=== PATIENT | female | born 1980 | race Caucasian/White ===

== ENCOUNTER 2020-12-28 13:21 | Observation (INO) | payer OTHER ==
[~2020-12-28] VITALS: Ht 167.6 cm; Wt 65.9 kg
--- NOTE | ~2020-12-28 | CN ---
PATIENT NAME:ALMA MARSH MEDICAL RECORD: [id number] : 84 LOCATION:D. D.2121 ADMIT DATE: 12/28/20 ACCOUNT: [id number] CONSULTING PHYSICIAN: KALEB GAINES MD REFERRING PHYSICIAN: MONISHA CRATY MD DATE OF CONSULTATION: 12/29/2020 HISTORY: The patient is a 40-year-old female with no active medical problem except history of paroxysmal supraventricular tachycardia. The patient presented to the Emergency Room with complaints of palpitation symptoms noted to be in PSVT. The patient received adenosine and beta-xin therapy. The patient's PSVT resolved and the patient's repeat EKG showed normal sinus rhythm. I asked to evaluate from a cardiovascular standpoint. PAST MEDICAL HISTORY: Significant for; PSVT -- currently in sinus rhythm. PHYSICAL EXAMINATION: GENERAL: Pleasant young white female, sitting, in no apparent distress. VITAL SIGNS: Blood pressure 110s over 50s, pulse 70s (regular). HEENT: Sclerae are clear; conjunctivae pink. NECK: Supple; no appreciated JVD. HEART: Regular rhythm and rate. LUNGS: Clear. ABDOMEN: Benign. EXTREMITIES: Negative for edema. NEUROLOGIC: Nonfocal. LABORATORY DATA: Hemoglobin and hematocrit 11.8 and 35.9, white blood cell count 8.8, platelet count 223. Sodium 138, potassium 4.0, BUN 13, creatinine is 1. D-dimer negative. Troponin 0.017 (negative). MEDICATIONS: No active medications. ASSESSMENT: Paroxysmal supraventricular tachycardia -- sinus rhythm. PLAN: Recommend starting Cardizem-CD 120 daily. The patient also instructed on decreased caffeine, chocolate usage. The patient is scheduled to follow up with local physicist [facility] in [place]. The patient also will be scheduled for echocardiogram to assess LV function and valvular status. Otherwise, no further cardiac workup indicated at this time. Thank you for allowing me to participate in the care of this patient. TRANSINT:[id number] Voice Confirmation ID: [id number] DOCUMENT ID: [id number] KALEB GAINES MD CC: [id number] DICTATION DATE: 12/29/20 1101 SILVER PLATER: 12/29/20 1446 DIS IN 12/29/20 [id number] [place] [address]
--- NOTE | 2020-12-28 13:38 | NUR ---
PT HEART RATE 237 ON ARRIVAL. MOVED TO TRIAGE ROOM AND CHEMICAL CARDIOVERSION PERFORMED BY DR MAR WITH 12MG ADENOSINE. SUCCESSFUL. RHYTHM STRIPS PLACED ON CHART. MONITORING ON REGISTERED ASSOCIATE.
[2020-12-28 13:51] VITALS: BP 118/51
[2020-12-28 14:05] VITALS: BP 113/74
[2020-12-28 14:14] LABS: BASOPHILS 0.2 % (0-2); EOSINOPHILS 0.9 % (0-7); HEMOGLOBIN 12.9 g/dL (12-16); IMMATURE GRANULOCYTES 0.2 % (0-5); LYMPHOCYTE ABS# 1.58 10x3/uL (1.18-3.74); LYMPHOCYTES 11.9 % (15-50); MCH 31.2 pg (26.0-34.0); MCHC 33.9 g/dL (31.0-37.0); MCV 91.8 fL (80.0-100.0); MEAN PLATELET VOLUME 10.7 fL (7.4-10.4); MONOCYTES 4.3 % (2-11); NEUTROPHIL ABS# 10.95 10x3/uL (1.56-6.13); NEUTROPHILS 82.5 % (40-80); PLATELET COUNT 198 10x3/uL (130-400); RBC 4.14 10x6/uL (4.00-5.40); RDW 12.1 % (11.5-14.5); WBC 13.3 10x3/uL (4.8-10.8)
[2020-12-28 14:16] VITALS: BP 123/60
[2020-12-28 14:20] LABS: APTT 27.8 SECONDS (22.8-39.4); INR 1.17 (0.85-1.17); PROTIME 13.8 SECONDS (11.6-15.0)
[2020-12-28 14:24] LABS: CALC OSMOLALITY 280 mosm/kg (275-300); CALCIUM 8.5 mg/dL (8.5-10.1); CARBON DIOXIDE 26.6 mmol/L (21.0-32.0); CHLORIDE - SERUM 107 mmol/L (98-107); CREATININE - SERUM 1.2 mg/dL (0.6-1.3); GLUCOSE 122 mg/dL (74-106); POTASSIUM - SERUM 4.5 mmol/L (3.5-5.1); SODIUM 140 mmol/L (136-145); UREA NITROGEN 14 mg/dL (7-18); eGFR NON AFRICAN AMERICAN 53 mL/min (90-120)
[2020-12-28 14:41] LABS: ALBUMIN 3.9 g/dL (3.4-5.0); ALKALINE PHOSPHATASE 38 U/L (30-120); ALT (SGPT) 23 U/L (10-68); BILIRUBIN - TOTAL 0.29 mg/dL (0.2-1.3); CKMB 0.4 U/L (0.0-3.6); CREATINE KINASE 112 UL (21-215); MAGNESIUM - SERUM 1.8 mg/dL (1.8-2.4); TROPONIN-I < 0.017 ng/mL (0.000-0.060)
--- NOTE | 2020-12-28 15:04 | NUR ---
REPORT CALLED TO [facility] TALAMANTES ON MED SURG, ROOM 2121.
--- NOTE | 2020-12-28 15:44 | NUR ---
RECEIVED PT TO ROOM 2120 VIA WHEELCHAIR, PT ABLE TO ABMULATE TO BED WITH NO PROBLEMS. PT A/O X4, RESP EVEN AND NONLABORED ON RA. RT AND LT AC IVS SL. ORIENTED PT TO ROOM AND CALL LIGHT, EXPLAINED RATIONAL, PT REFUSED TO WEAR THEM AT THIS TIME. ALREADY ON LOVENOX. GAVE IS AND ENCOURAGED HER TO DO IT Q2H AND ENCOURAGED HER TO TURN, COUGH AND DEEP BREATH Q2HRS. WILL ASSESS PT AND START PLAN OF CARE.
[2020-12-28 15:56] VITALS: Ht 167.6 cm; Wt 65.9 kg
[2020-12-28 17:08] VITALS: BP 137/66
--- NOTE | 2020-12-28 19:00 | NUR ---
RECEIVED REPORT. RECEIVED PATIENT SITTING UP IN BED. FAMILY AT BEDSIDE. NO S/S OF DISTRESS. AAOX4. DENIES ANY PAIN OR CONCERNS. ASSESSMENT COMPKETE. WILL CONT TO MONITOR.
[2020-12-28 20:20] VITALS: BP 120/66
[2020-12-29 00:13] VITALS: BP 116/58
[2020-12-29 03:34] VITALS: BP 116/50
[2020-12-29 05:58] LABS: BASOPHILS 0.2 % (0-2); EOSINOPHILS 1.9 % (0-7); HEMATOCRIT 35.9 % (36.0-48.0); HEMOGLOBIN 11.8 g/dL (12-16); IMMATURE GRANULOCYTES 0.2 % (0-5); LYMPHOCYTE ABS# 1.48 10x3/uL (1.18-3.74); LYMPHOCYTES 16.9 % (15-50); MCH 30.3 pg (26.0-34.0); MCHC 32.9 g/dL (31.0-37.0); MCV 92.3 fL (80.0-100.0); MEAN PLATELET VOLUME 11.4 fL (7.4-10.4); MONOCYTES 7.8 % (2-11); NEUTROPHIL ABS# 6.38 10x3/uL (1.56-6.13); PLATELET COUNT 223 10x3/uL (130-400); RBC 3.89 10x6/uL (4.00-5.40); RDW 12.4 % (11.5-14.5)
[2020-12-29 06:01] LABS: WBC 8.8 10x3/uL (4.8-10.8)
--- NOTE | 2020-12-29 06:31 | NUR ---
PT RESTED COMFORTABLY THROUGHT THE NIGHT. PT DENIES PAIN AND/OR SOB. VITALS WNL. PT SLEEPING AT THIS TIME WITH NO NEEDS.
[2020-12-29 06:38] LABS: ALBUMIN 3.4 g/dL (3.4-5.0); ANION GAP 7.5 mmol/L (8-16); BILIRUBIN - TOTAL 0.18 mg/dL (0.2-1.3); CALCIUM 8.3 mg/dL (8.5-10.1); CARBON DIOXIDE 28.5 mmol/L (21.0-32.0); PROTEIN - SERUM 6.7 g/dL (6.4-8.2)
[2020-12-29 09:28] VITALS: BP 110/32
[2020-12-29] MEDS ORDERED: CARDIZEM LA120 M1 PO (10:57)
--- NOTE | 2020-12-29 13:28 | NUR ---
PROVIDED VERBAL AND WRITTEN DISCHARGE TEACHING TO PT, WHO VEBALIZED UNDERSTANDING REGARDING TEACHING. D/C LT AND RT AC IVS WITH CATHETER TIPS INTACT. HEART MONITOR REMOVED AND TAKEN TO CAREER TECHNICAL EDUCATION INSTRUCTOR. PT REFUSED WHEECHAIR, LEFT UNIT VIA AMBULATORY WITH ALL BELONGINGS, NAD NOTED.
== END 2020-12-29 13:53 | disposition home or self-care (01) ==
LOC: D.ER 13:21 → D.M2 14:22 → OBSVTIME 14:22 → D.M2 12-29 13:53
PROVIDERS: Family Medicine; ADMIT Emergency Medicine; ATTEND Emergency Medicine
DX: I47.1 Supraventricular tachycardia (principal); R07.9 Chest pain, unspecified; R06.00 Dyspnea, unspecified